=== PATIENT | female | born 1960 | race Caucasian/White ===

== ENCOUNTER 2024-06-21 12:12 | Day surgery (SDC) | payer OTHER, SELFPAY ==
[2024-06-21] VITALS (11 sets, daily range): BP systolic 93–132; BP diastolic 55–89; PULSE 63–68; RESP 14–20; TEMP 36.9; O2SAT 92–98; BMI 25.0
--- NOTE | 2024-06-21 07:25 | IR_ITS ---
APPROVED REPORT Patient Location: Outpatient Multimedia Producer: LUZ Moulton RT (R) PROCEDURES 1. Left heart catheterization 2. Selective coronary arteriography 3. Left ventriculography 4. PTCA/stent of the second obtuse marginal branch of the circumflex 5. PTCA/stent of the left circumflex INDICATION 1. Angina pectoris, 2. Coronary artery disease SCAI INDICATION Patient is a 63-year-old white female with known coronary artery disease presented to cardiology clinic with aggressive pressure and tightness in the chest. Class to class IV anginal symptoms. Continued with stuttering pain. Maximal medical therapy. Secondary to this referred directly for left heart catheterization Informed consent was obtained prior to the procedure. COMPLICATIONS NONE Estimated Blood Loss: LESS THAN 10 ML TECHNIQUE One percent lidocaine used to anesthetize the right anterior aspect of the wrist. The right radial artery was accessed via the Seldinger technique. A 6 [place] sheath was placed in the right radial artery. 2.5 mg of Verapamil, 800 mcg of nitroglycerin, 1mg Lidocaine and 5000 U Heparin were given through the arterial sheath. The papa catheter was also used to perform left heart catheterization, left ventriculogram and selective coronary angiogram. At the end of the procedure the sheath was removed good hemostasis was achieved using Traclet band, patient was transferred to the postop holding area in stable condition. ANGIOGRAPHIC RESULTS The left main artery Angiographically normal The left anterior descending artery Mild calcification throughout the proximal vessel with smooth 20% stenosis. There was a long stent in the proximal/mid left anterior descending with smooth diffuse 30% in-stent thinning in the distal portion of the stent. Excellent flow into the distal left anterior descending itself. No compromise of any diagonal branches The circumflex artery Large and dominant vessel. 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 Small obtuse marginal branch came off at that level which was less than 1.5 mm in size. No significant stenoses. The second obtuse marginal branch had a stent in its ostial/proximal portion. There was a long area of in-stent stenosis at 90%. Just after that patient had stents throughout the mid left circumflex extending into the posterior descending artery crossing the posterior lateral branch. Those stents had 60 to 70% in-stent stenosis throughout the vessel and involving the takeoff area of the second obtuse marginal branch. There was some smooth 30% in-stent thinning just after the takeoff of the posterior lateral branch as well. The posterior lateral branch had no significant stenoses and was not pinched by the stents. The right coronary artery Small and nondominant. Smooth 20% proximal and mid stenosis The VALERA ventriculogram reveals Normal left ventricular systolic function with an ejection fraction of 65 to 70% The left ventricular end-diastolic pressure 12 After diagnostic cardiac catheterization was performed we did give extra heparin and ACT was checked. ACT greater than 275. l wired the second obtuse marginal branch with a Choice PT wire. I took a second wire and wired the true circumflex. This was also a Choice PT wire. I primarily stented in the second obtuse marginal branch in its ostial/proximal portion with a 2.5 x 12 mm drug-eluting stent. Resulted in 0% residual stenosis but there was pinching of the mid left circumflex. That was at the area where we initially saw the diffuse 60 to per 70% in-stent stenosis in the mid left circumflex. Secondary to this I pulled my first wire as well as the stent balloon. I tried to cross with a 2.0 x 12 mm balloon. I was unable to cross. I tried with a 1.25 x 15 mm balloon. Still unable to cross. I then used a support catheter and was able to cross and inflate in 3 separate locations in the mid dominant circumflex right at the level of the second obtuse marginal branch. I was then able to pass a 2.75 x 26 mm drug-eluting stent into the mid dominant circumflex crossing the second obtuse marginal. Deployed without difficulty. Excellent flow down both branches and excellent flow into the distal vessels when the procedure was complete with no significant residual stenosis noted in the second obtuse marginal branch or the true circumflex itself which gave rise to the posterior descending artery and posterolateral branch IMPRESSION 1. Critical in-stent stenosis noted in the ostial/proximal second obtuse marginal branch of the circumflex 2. Moderate to severe diffuse in-stent stenosis noted in the mid left circumflex 3. 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 Long patent stent in the proximal/mid left anterior descending with mild smooth in-stent thinning 5. Small nondominant right coronary artery with trivial disease 6. Normal left ventricular systolic function 7. Normal left ventricular end-diastolic pressure 8. Mild diffuse coronary calcification 9. Successful angioplasty and stenting of the ostial/proximal second obtuse marginal branch of the circumflex with a drug-eluting stent resulting in 0% residual stenosis 10. Successful angioplasty and stenting of the mid left circumflex with a drug-eluting stent resulting in 0% residual stenosis 11. Successful placement of a radial band on the right radial artery PLAN 1. Patient will remain on Plavix 75 mg daily and aspirin 81 mg daily at home. 600 mg of Plavix x 1 now. Continued aggressive risk factor modification. Tobacco avoidance and cessation. Follow-up in cardiology clinic in 1 to 2 weeks for further evaluation and treatment. Left ventricular function is preserved. Patient now has full revascularization Electronically signed by : Ervin Hughes MD 06/21/2024 15:01:22
[2024-06-21 12:37] LABS: Basophils # 0.2 K/mm3 (0-0.2); Basophils % 2.2 % (0.1-2.0); Eosinophils # 0.2 K/mm3 (0.0-0.4); Eosinophils % 2.4 % (0.1-12.0); Hematocrit 46.2 % (37.0-47.0); Hemoglobin 14.6 g/dL (12.2-16.2); Lymphocytes # 3.5 K/mm3 (0.7-4.5); Lymphocytes % 38.5 % (10-50); Mean Corpuscular HGB Conc 31.6 g/dL (31.8-35.4); Mean Corpuscular Hemoglobin 30.2 pg (27.0-31.2); Mean Corpuscular Volume 95.4 fl (81-99); Mean Platelet Volume 8.1 fl (7.4-10.4); Monocytes # 0.5 K/mm3 (0.1-1.0); Neutrophils # 4.7 K/mm3 (1.8-7.8); Neutrophils % 51.9 % (37.0-80.0); Platelet Count 298 K/mm3 (142-424); Red Blood Count 4.84 M/mm3 (4.20-5.40); Red Cell Distribution Width 14.5 % (11.5-17.5); White Blood Count 9.1 K/mm3 (4.8-10.8)
[2024-06-21 12:42] LABS: Chloride 108 mmol/L (98-107); Potassium 3.1 mmoL/L (3.5-5.1); Sodium 139 mmol/L (136-145)
[2024-06-21 12:45] LABS: Anion Gap 8.1 mEq/L (5-15); Blood Urea Nitrogen 15 mg/dl (7-17); Calcium 9.6 mg/dl (8.4-10.2); Carbon Dioxide 26 mmol/L (22.0-30.0); Creatinine Clearance Estimated 67 mL/min (50-200); Estimated Glomerular Filt Rate 56 ml/min (>60); GFR (African American) 68 ML/MIN (>60); Glucose 110 mg/dl (74-100)
[2024-06-21] MEDS: VERAPAMIL 2.5MG/ML 2ML VIAL 2.5 MG IV (14:05)
[2024-06-21] MEDS: HEPARIN 1,000 UNITS/ML 10ML VIAL (CATH LAB) 10000 UNIT IV (14:05)
[2024-06-21] MEDS: diphenhydrAMINE 50MG/ML VIAL 50 MG IV (14:05)
[2024-06-21] MEDS: LIDOCAINE 1% 10ML MDV 20 ML IJ (14:05)
[2024-06-21] MEDS: 0.9 % SODIUM CHLORIDE 500 ML 25 ML IV (14:06)
[2024-06-21] MEDS: HEPARIN 1,000 UNITS/500ML NS (CATH LAB) 3000 UNIT IV (14:07)
[2024-06-21] MEDS: NITROGLYCERIN 800MCG/8ML SYR (CATH LAB) 800 MCG IA (14:07)
[2024-06-21] MEDS: MIDAZOLAM HCL 1MG/1ML 5ML VIAL 1 MG IV (14:08)
[2024-06-21] MEDS: FENTANYL 100MCG/2ML VIAL 50 MCG IV (14:08)
[2024-06-21 15:00] LABS: CATHL Activated Clotting Time 286 SEC (74-125)
[2024-06-21] MEDS: IOPAMIDOL-370 (76%);100ML BOTTLE 105 ML IV (15:03)
== END 2024-06-21 16:56 | disposition home or self-care (01) ==
PROVIDERS: Internal Medicine Cardiovascular Disease; PCP Nurse Practitioner; Visit Provider Internal Medicine
DX: I25.118 Atherosclerotic heart disease of native coronary artery with other forms of angina pectoris (principal); T82.855A Stenosis of coronary artery stent, initial encounter; F17.210 Nicotine dependence, cigarettes, uncomplicated; Z79.899 Other long term (current) drug therapy; I10 Essential (primary) hypertension; I25.2 Old myocardial infarction; Y83.1 Surgical operation with implant of artificial internal device as the cause of abnormal reaction of the patient, or of later complication, without mention of misadventure at the time of the procedure
CPT/HCPCS: 80048; 85025; 85347; 92928; 92929; 93458; 99152; 99153; C1725; C1769; C1874; C9600; C9601; J1200; J1644; J2250; J3010; Q9967

== ENCOUNTER 2024-11-10 12:58 | Outpatient (CLI) | payer OTHER, SELFPAY ==
--- NOTE | 2024-11-10 | CA_ITS ---
FINAL REPORT CLINICAL HISTORY: DIZZINESS CONFUSION CAD COMPARISON: None FINDINGS: RIGHT CAROTID: CCA PSV -104.1 cm/sec ICA PSV -111.5 cm/sec ICA/CCA PSV ratio -1.16. Comments: Minimal plaque disease is noted. LEFTCAROTID: CCA PSV -82.8. cm/sec ICA PSV -95.0. cm/sec ICA/CCA PSV ratio -1.39. Comments: Minimal plaque disease is noted. Antegrade flow is seen within the vertebral arteries. IMPRESSION: Carotid stenosis classified less than 50% bilaterally Reviewed, Interpreted and Dictated by Trina Virgen MD Transcribed by Deidra Sullivan Authenticated and [facility]
--- NOTE | 2024-11-10 | CA_ITS ---
APPROVED REPORT EXAM: Comprehensive 2D, Doppler, and color-flow Echocardiogram [employer] Top Helper: Pam Parmar RDCS Ht: 5 ft 7 in Wt: 155lbs BSA: 1.81 BP: 118/70 mmHg Indications: CAD,COPD,HTN,HLP M-Mode Dimensions RVDd 2.21 cm (0.9-2.6) LVDd 4.20 cm (3.5-5.7) LVDs 3.01 cm (3.5-5.7) IVSd 0.64 cm (0.6-1.1) PWd 0.72 cm (0.6-1.1) EF (Teich) 55.10% FS 28.30% EDV (Teich) 78.60 mL TAPSE 1.70 (<1.7) ESV (Teich) 35.30 mL LV Diastology E Decel Time 247 (160-240 msec) E/A Ratio 0.8 Aortic Valve DEMARCUS Index 1.10 cm2/m2 AoV Peak Chriss. 131.0 (50-130 cm/s) AO Peak GR. 6.90 mmHg AO Mean GR. 3.40 (<5 mmHg) AO VTI 22.7 (18-25 cm) DMEARCUS (VTI) 2.04 (2.5-4.5 cm2) Mitral Valve MV E Max Chriss. 48.0 (40-130 cm/s) MV A Velocity 64.0 (40-130 cm/s) E/A Ratio 0.75 MV PHT 72.0 ms Left Ventricle The left ventricle is normal size. The left ventricular systolic function is normal. The left ventricular ejection fraction is within the normal range. There is normal left ventricular wall thickness. There is normal LV segmental wall motion. The left ventricular diastolic function is normal. LVEF is 55%. Right Ventricle The right ventricle is normal size. The right ventricular systolic function is normal. Atria The left atrium size is normal. The right atrium size is normal. There is no Doppler evidence of interatrial shunt. Aortic Valve Aortic valve is mildly thickened. There is no aortic valvular stenosis. No aortic regurgitation is present. Mitral Valve The mitral valve is normal in structure. No evidence of mitral valve stenosis. There is no mitral valve regurgitation noted. Tricuspid Valve Tricuspid valve is grossly normal in structure and function. Trace tricuspid regurgitation. There is insufficient TR jet to estimate RVSP. Pulmonic Valve The pulmonary valve is normal in structure. Trace pulmonic regurgitation. Great Vessels The aortic root is normal in size. IVC is normal in size and collapses >50% with inspiration. Pericardium There is no pericardial effusion. Other Information Study Quality: Fair Conclusion Normal biventricular systolic function. No significant valvular stenosis or regurgitation. Electronically signed by : Sheryl Hazel MD 11/20/2024 12:34:24
== END 2024-11-10 23:59 | disposition home or self-care (01) ==
LOC: RT 13:00
PROVIDERS: PCP Nurse Practitioner; Visit Provider Internal Medicine Cardiovascular Disease
DX: I20.9 Angina pectoris, unspecified (principal); R06.09 Other forms of dyspnea; I65.23 Occlusion and stenosis of bilateral carotid arteries
CPT/HCPCS: 93306; 93880